=== PATIENT | female | born 1945 | race Caucasian/White ===

== ENCOUNTER 2019-05-15 21:02 | Emergency (ER) | payer OTHER ==
[~2019-05-15] VITALS: Ht 154.9 cm; Wt 50.8 kg
[2019-05-15 21:32] VITALS: BP 144/77
[2019-05-15 22:20] LABS: BASOPHILS % (AUTO) 0.8 % (0.0-2.0); EOSINOPHILS # (AUTO) 0.1 K/uL (0-0.4); EOSINOPHILS % (AUTO) 1.9 % (0.0-4.0); HEMATOCRIT 47.4 % (36-48); HEMOGLOBIN 15.8 g/dL (12.0-16.0); LYMPHOCYTES # (AUTO) 0.9 K/uL (2.5-16.5); LYMPHOCYTES % (AUTO) 18.2 % (20.5-51.1); MEAN CORPUSCULAR HEMOGLOBIN 29 pg (27-31); MEAN CORPUSCULAR HGB CONC 33 g/dL (33-37); MEAN CORPUSCULAR VOLUME 88.3 fL (80-94); MONOCYTES # (AUTO) 0.4 K/uL (0.8-1.0); MONOCYTES % (AUTO) 7.6 % (1.7-9.3); NEUTROPHILS # (AUTO) 3.6 K/uL (1.8-7.7); NEUTROPHILS % (AUTO) 71.5 % (42.2-75.2); PLATELET COUNT (AUTO) 209 K/uL (140-450); RED BLOOD CELL COUNT(AUTO) 5.36 MIL/uL (4.20-5.40); RED CELL DISTRIBUTION WIDTH 13.1 % (11.6-13.7)
[2019-05-15 22:29] LABS: ANION GAP 11.3 (8-16); CARBON DIOXIDE 27.9 mmol/L (21-32); CHLORIDE 101 mmol/L (98-107); CREATININE 0.8 mg/dL (0.6-1.3); GLUCOSE 182 mg/dL (74-106); SODIUM SERUM 135 mmol/L (136-145); UREA NITROGEN, BLOOD 17 mg/dL (7-18)
[2019-05-15] MEDS ORDERED: ONDANSETRON 4 MG ODT PO ONE (22:30)
--- NOTE | 2019-05-15 22:30 | NUR ---
73/F BIB SON WITH , C/O DECREASED APPETITE, POSTERIOR HEADACHE, INTERMITTENT N/V, DIFFUSE ABD PAIN. REPORTS THESE SYMPTOMS FOR 3 DAYS. PT AWAKE AND ALERT, SKIN NORMAL WARM DRY, RR EVEN AND UNLABORED. LUNG SOUNDS CLEAR BL. BS ACTIVE X4, ABD SOFT ROUND TENDER DIFFUSELY. HX VERTIGO, DM, HTN, CHOLECYSTECTOMY
[2019-05-15 22:35] LABS: ALBUMIN 3.5 g/dL (3.4-5.0); ASPARTATE AMINOTRANSFERASE 28 U/L (15-37); LIPASE 191 U/L (73-393); POTASSIUM 5.2 mmol/L (3.5-5.1); TOTAL BILIRUBIN 0.7 mg/dL (0.0-1.0)
--- NOTE | 2019-05-16 00:06 | NUR ---
DR PLAZA AT BEDSIDE FOR MSE
[2019-05-16] MEDS ORDERED: MORPHINE SULFATE 4 MG/ML SYR IM ONE (00:10)
--- NOTE | 2019-05-16 01:03 | NUR ---
Patient discharged with v/s stable. Written and verbal after care instructions given and explained. Patient alert, oriented and verbalized understanding of instructions. WHEELCHAIR ASSISTED TO CAR W/ SON. All questions addressed prior to discharge. ID band removed. Patient advised to follow up with PMD. Rx of NORCO, IMMODIUM, ZOFRAN given. Patient educated on indication of medication including possible reaction and side effects. Opportunity to ask questions provided and answered.
[2019-05-16 01:13] VITALS: BP 125/73
== END 2019-05-16 01:03 | disposition home or self-care (01) ==
LOC: MED 21:02
DX: R10.13 Epigastric pain (principal); R11.2 Nausea with vomiting, unspecified; R19.7 Diarrhea, unspecified; E11.9 Type 2 diabetes mellitus without complications; I10 Essential (primary) hypertension; Z90.49 Acquired absence of other specified parts of digestive tract; Z88.0 Allergy status to penicillin; Z88.8 Allergy status to other drugs, medicaments and biological substances
CPT/HCPCS: 36415; 80053; 81002; 83690; 85025; 96372; 99283; J2270; Q0162